=== PATIENT | female | born 1960 | race Caucasian/White ===

== ENCOUNTER 2024-10-04 02:25 | Emergency (ER) | payer BC ==
[2024-10-04] MEDS ORDERED: Acetaminophen 325 MG TAB ONE (02:43)
[2024-10-04] MEDS ORDERED: Ketorolac Tromethamine 30 MG (1 mL) VIAL ONE (02:43)
[2024-10-04] MEDS ORDERED: Sodium Chloride 0.9% 100 ML ONE (02:44)
[2024-10-04] MEDS ORDERED: Ondansetron PF 4 MG/2 ML Vial ONE ×2 (02:44→05:10)
[2024-10-04] MEDS ORDERED: Piperacillin/Tazobactam 3.375 GM VIAL ONE (02:44)
[2024-10-04 03:08] LABS: #Basophils 0.03 10x3/uL (0.0-0.2); %Basophils 0.3 % (0.0-1.0); %Eosinophils 0.6 % (0.0-10.0); %Lymphocytes 4.5 % (21.0-51.0); %Neutrophils 89.3 % (42.0-75.0); Hematocrit 39.7 % (36.0-47.0); Hemoglobin 13.1 g/dL (12.0-16.0); Mean Corpuscular Hemoglobin 30.3 pg (27.0-31.0); Mean Corpuscular Volume 91.7 fL (78.0-98.0); Mean Platelet Volume 8.8 fL (7.4-10.4); Platelet Count 255 10x3/uL (130-400); Red Blood Cell (RBC) Count 4.33 mill/uL (4.20-5.40)
[2024-10-04 03:38] LABS: ALT (SGPT) 50 U/L (8-55); AST (SGOT) 148 U/L (5-34); Alkaline Phosphatase 75 U/L (40-110); Anion Gap 13 mmol/L (10-20); BUN (Urea Nitrogen) 17 mg/dL (9.8-20.1); Bilirubin, Total 0.5 mg/dL (0.2-1.2); Calc. Creatinine Clearance 0 mL/min (70-130); Calcium 8.8 mg/dL (7.8-10.44); Carbon Dioxide 26 mmol/L (23-31); Chloride 100 mmol/L (98-107); Estimated GFR 79; Globulin 3.2 g/dL (2.4-3.5); Glucose 219 mg/dL (80-115); Lipase 30 U/L (8-78); Magnesium 1.8 mg/dL (1.6-2.6); Potassium 4.3 mmol/L (3.5-5.1); Protein, Total 7.2 g/dL (5.8-8.1); Sodium 135 mmol/L (136-145)
[2024-10-04 03:40] LABS: Troponin I Less than 0.010 ng/mL (< 0.028)
[2024-10-04] MEDS ORDERED: Morphine 4 MG/ML VIAL ONE (05:00)
[2024-10-04] MEDS ORDERED: Lidocaine Viscous Sol 2% 15 ml UD Cup ONE (05:59)
[2024-10-04] MEDS ORDERED: Mag-Al 1200 mg/1200 mg/30 ML UDCUP ONE (05:59)
[2024-10-04 07:50] LABS: Bacteria/HPF None Seen HPF (None Seen); Bilirubin Negative (Negative); Blood, Urine Negative (Negative); CAUTI Indications for Culture Fever or rigors; Clarity Clear (Clear); Glucose, Urine (Dipstick) 200 mg/dL (Negative); Ketone, Urine Negative (Negative); Leukocyte Negative Leu/uL (Negative); Nitrite Negative (Negative); Protein, Urine (Dipstick) Negative (Neg-Trace); RBC/HPF 0-3 HPF (0-3); Squamous Epithelial 0-3 HPF (0-3); Urobilinogen Normal mg/dL (Less than 2); WBC/HPF 0-3 HPF (0-3); pH, Urine 6.5 (5.0-9.0)
[2024-10-04 07:57] LABS: Specific Gravity, Urine 1.046 (1.002-1.036); Urine Culture Reflex No No
== END 2024-10-04 08:09 | disposition home or self-care (01) ==
LOC: ERS 02:25
DX: R10.13 Epigastric pain (principal); R10.11 Right upper quadrant pain; E11.9 Type 2 diabetes mellitus without complications; F17.210 Nicotine dependence, cigarettes, uncomplicated
CPT/HCPCS: 36415; 74177; 80053; 81001; 83605; 83690; 83735; 84484; 85025; 87040; 87428; 93005; 96365; 96375; 96376; J1885; J2272; J2405; J2543